=== PATIENT | male | born 1980 | race Caucasian/White ===

== ENCOUNTER 2016-04-21 14:02 | Emergency (ER) | payer BC ==
[2016-04-21] MEDS ORDERED: Sodium Chloride 0.9% 1,000 ML IV ONE (14:43)
[2016-04-21] MEDS ORDERED: HYDROmorphone 1 MG/ML Syringe IVPUSH PRN (14:43)
[2016-04-21] MEDS ORDERED: Sodium Chloride 0.9% 10 ML Syringe FLUSH PRN (14:43)
[2016-04-21] MEDS ORDERED: Sodium Chloride 0.9% 2.5 ML Syringe FLUSH PRN (14:43)
[2016-04-21 14:44] VITALS: BP 142/86
[2016-04-21] MEDS ORDERED: Lidocaine 1% 20 ML MDV INJECT ONE (14:46)
[2016-04-21] MEDS ORDERED: Bupivacaine 0.5% 10 ML SDV INJECT ONE (14:46)
[2016-04-21] MEDS ORDERED: Sulfamethoxazole/Trimethoprim 800-160 MG Tab PO ONE (14:46)
--- NOTE | 2016-04-21 14:49 | EDM.PDOC ---
ED HPI Skin/Rash - General Chief Complaint: Skin Complaint Stated Complaint: CYST Time Seen by Provider: 04/21/16 14:30 Source: Reports: Patient History Limitations: Reports: No limitations - History of Present Illness INITIAL COMMENTS - FREE TEXT/NARRATIVE: History of present illness: [] Patient has a history of buttock abscesses and developed this week. Was seen in clinic and was told it could not be drained because it was too hard and to make an appointment in a couple days for recheck. Patient has had fevers and sweats with dizziness and severe pain in his buttock. Review of systems: As per history of present illness and below otherwise all systems reviewed and negative. Past medical history: As per history of present illness and as reviewed below otherwise noncontributory. Surgical history: As per history of present illness and as reviewed below otherwise noncontributory. Social history: No reported history of drug or alcohol abuse. Family history: As per history of present illness and as reviewed below otherwise noncontributory. Physical exam: General: Well developed, well nourished in NAD HEENT: Atraumatic, normocephalic, pupils reactive, negative for conjunctival pallor or scleral icterus, mucous membranes moist, throat clear, neck supple, nontender, trachea midline. Lungs: Clear to auscultation, breath sounds equal bilaterally, chest nontender. Heart: S1S2, regular, negative for clicks, rubs, or JVD. Abdomen: Soft, nondistended, nontender. Negative for masses or hepatosplenomegaly. Negative for costovertebral tenderness. Pelvis: Stable nontender. Genitourinary: Deferred. Rectal: Deferred. Extremities: Atraumatic, negative for cords or calf pain. Neurovascular unremarkable. Neuro: Awake, alert, oriented. Cranial nerves II through XII unremarkable. Cerebellum unremarkable. Motor and sensory unremarkable throughout. Exam nonfocal. Diagnostics: [] Therapeutics: [] Impression: [] Plan: [] Definitive disposition and diagnosis as appropriate pending reevaluation and review of above. - Related Data Allergies Allergy/AdvReac Type Severity Reaction Status Date / Time cephalexin [Cephalexin] Allergy Swelling Verified 04/21/16 14:44 peanut Allergy Anaphylactic Verified 04/21/16 14:44 Shock Home Meds: Ambulatory Orders Medication Instructions Recorded Confirmed Acetaminophen/HYDROcodone [[place] 1 tab PO Q6H PRN 04/21/16 04/21/16 325-5 MG] Sulfamethoxazole/Trimethoprim 1 each PO BID #20 tablet 04/21/16 [Bactrim Ds Tablet] Sulfamethoxazole/Trimethoprim 1 tab PO BID 04/21/16 04/21/16 [Bactrim Ds Tablet] Past Medical History Gastrointestinal History: Reports: None - Infectious Disease History Infectious Disease History: Reports: Chicken pox, MRSA - Past Surgical History GI Surgical History: Reports: Hernia, inguinal, Hernia repair/other Social & Family History - Family History Family Medical History: Noncontributory - Tobacco Use Smoking Status *Q: Current Every Day Smoker Years of Tobacco use: 15 Packs/Tins Daily: 1 - Alcohol Use Days Per Week of Alcohol Use: 0 - Recreational Drug Use Recreational Drug Use: No ED ROS GENERAL - Review of Systems Review Of Systems: See Below (See history of present illness) ED EXAM, SKIN/RASH Exam: See Below (See history of present illness) ED SKIN PROCEDURES - I&D Site: Buttock Skin prep: chlorhexidine (hibiciens) Local anesthesia: Lidocaine: 1% plain Local anesthesia - Bupivicaine (Marcaine): 0.5% plain Local anesthetic volume: 2cc Area incised with: 11 blade Drainage: purulent, large amount Probed to break up loculations: Yes Packed with: 1/4 in. iodoform Complications: No Course - Vital Signs Last Recorded V/S: Last Vital Signs Temp 37.0 C 04/21/16 14:42 Pulse 83 04/21/16 14:42 Resp 16 04/21/16 14:42 BP 142/86 H 04/21/16 14:42 Pulse Ox 97 04/21/16 14:42 - Orders/Labs/Meds Orders: Active Orders 24 hr Category Date Time Status HYDROmorphone [Dilaudid] Med 04/21/16 14:43 Active 0.5 mg IVPUSH Q1H PRN Sodium Chloride 0.9% [Normal Saline] 1,000 ml Med 04/21/16 14:43 Active IV .Bolus Sodium Chloride 0.9% [Saline Flush] Med 04/21/16 14:43 Active 10 ml FLUSH ASDIRECTED PRN Sodium Chloride 0.9% [Saline Flush] Med 04/21/16 14:43 Active 2.5 ml FLUSH ASDIRECTED PRN Peripheral IV Insertion Adult [OM.PC] Stat Oth 04/21/16 14:43 Ordered Medication Orders Hydromorphone HCl (Dilaudid) 0.5 mg IVPUSH Q1H PRN PRN Reason: Pain Last Admin: 04/21/16 15:00 Dose: 0.5 mg Sodium Chloride (Normal Saline) 1,000 mls @ 999 mls/hr IV .Bolus ONE Stop: 04/21/16 15:43 Last Admin: 04/21/16 15:01 Dose: 999 mls/hr Sodium Chloride (Saline Flush) 10 ml FLUSH ASDIRECTED PRN PRN Reason: Keep Vein Open Last Admin: 04/21/16 15:01 Dose: 10 ml Sodium Chloride (Saline Flush) 2.5 ml FLUSH ASDIRECTED PRN PRN Reason: Keep Vein Open Last Admin: 04/21/16 15:01 Dose: 2.5 ml Meds: Medications Generic Name Dose Route Start Last Admin Trade Name Freq PRN Reason Stop Dose Admin Hydromorphone HCl 0.5 mg 04/21/16 14:43 04/21/16 15:00 Dilaudid IVPUSH 0.5 mg Q1H PRN Administration Pain Sodium Chloride 1,000 mls @ 999 mls/hr 04/21/16 14:43 04/21/16 15:01 Normal Saline IV 04/21/16 15:43 999 mls/hr .Bolus ONE Administration Sodium Chloride 10 ml 04/21/16 14:43 04/21/16 15:01 Saline Flush FLUSH 10 ml ASDIRECTED PRN Administration Keep Vein Open Sodium Chloride 2.5 ml 04/21/16 14:43 04/21/16 15:01 Saline Flush FLUSH 2.5 ml ASDIRECTED PRN Administration Keep Vein Open Discontinued Medications Generic Name Dose Route Start Last Admin Trade Name Freq PRN Reason Stop Dose Admin Bupivacaine HCl 10 ml 04/21/16 14:46 04/21/16 15:00 Sensorcaine-Mpf 0.5% INJECT 04/21/16 14:47 10 ml ONETIME ONE Administration Lidocaine HCl 20 ml 04/21/16 14:46 04/21/16 15:00 Xylocaine 1% INJECT 04/21/16 14:47 20 ml ONETIME ONE Administration Ondansetron HCl 4 mg 04/21/16 15:06 04/21/16 15:10 Za IVPUSH 04/21/16 15:07 4 mg ONETIME ONE Administration Trimethoprim/Sulfamethoxazole 1 tab 04/21/16 14:46 04/21/16 15:01 Septra Ds PO 04/21/16 14:47 1 tab ONETIME ONE Administration Departure - Departure Time of Disposition: 15:27 Disposition: Home, Self-Care 01 Condition: good Clinical Impression: Abscess of right buttock Prescriptions: Sulfamethoxazole/Trimethoprim [Bactrim Ds Tablet] 1 each PO BID #20 tablet Referrals: PCP,None [Primary Care Provider] - Forms: ED Department Discharge Additional Instructions: The following information is given to patients seen in the emergency department who are being discharged to home. This information is to outline your options for follow-up care. We provide all patients seen in our emergency department with a follow-up referral. The need for follow-up, as well as the timing and circumstances, are variable depending upon the specifics of your emergency department visit. If you don't have a primary care physician on staff, we will provide you with a referral. We always advise you to contact your personal physician following an emergency department visit to inform them of the circumstance of the visit and for follow-up with them and/or the need for any referrals to a consulting specialist. The emergency department will also refer you to a specialist when appropriate. This referral assures that you have the opportunity for follow-up care with a specialist. All of these measure are taken in an effort to provide you with optimal care, which includes your follow-up. Under all circumstances we always encourage you to contact your private physician who remains a resource for coordinating your care. When calling for follow-up care, please make the office aware that this follow-up is from your recent emergency room visit. If for any reason you are refused follow-up, please contact the [facility] Emergency Department at and asked to speak to the emergency department charge nurse. Bactrim 3 times a day for 10 days continue her current pain medicines followup as needed remove packing tomorrow Sitz baths as much as possible [facility] [address] [place] [id number] - My Orders Last 24 Hours: My Active Orders 04/21/16 14:43 HYDROmorphone [Dilaudid] 0.5 mg IVPUSH Q1H PRN Sodium Chloride 0.9% [Normal Saline] 1,000 ml IV .Bolus Sodium Chloride 0.9% [Saline Flush] 10 ml FLUSH ASDIRECTED PRN Sodium Chloride 0.9% [Saline Flush] 2.5 ml FLUSH ASDIRECTED PRN Peripheral IV Insertion Adult [OM.PC] Stat - Assessment/Plan Last 24 Hours: My Active Orders 04/21/16 14:43 HYDROmorphone [Dilaudid] 0.5 mg IVPUSH Q1H PRN Sodium Chloride 0.9% [Normal Saline] 1,000 ml IV .Bolus Sodium Chloride 0.9% [Saline Flush] 10 ml FLUSH ASDIRECTED PRN Sodium Chloride 0.9% [Saline Flush] 2.5 ml FLUSH ASDIRECTED PRN Peripheral IV Insertion Adult [OM.PC] Stat
[2016-04-21] MEDS ORDERED: Ondansetron 4 MG/2 ML SDV IVPUSH ONE (15:06)
== END 2016-04-21 16:33 | disposition home or self-care (01) ==
LOC: MW.ED 14:02
DX: L02.31 Cutaneous abscess of buttock (principal); Z91.010 Allergy to peanuts; Z88.1 Allergy status to other antibiotic agents; F17.210 Nicotine dependence, cigarettes, uncomplicated
CPT/HCPCS: 10061; 96361; 96374; 96375; 99283; A9270; J1170; J2405; J7040; 99284